=== PATIENT | male | born 1940 | race Caucasian/White ===

== ENCOUNTER 2018-02-18 10:30 | Day surgery (SDC) | payer MEDICARE, OTHER, SELFPAY ==
--- NOTE | 2018-02-18 | PATH_ITS ---
[facility] Accession Number: [id number] . 01 Material submitted: . PART A: CECAL POLYP X3 PART B: TRANSVERSE COLON POLYP PART C: COLON POLYP AT 80CM PART D: COLON POLYP AT 55CM X2 PART E: POLYP AT 25CM PART F: COLON POLYP AT 15CM X2 . 02 Diagnosis: A. Cecal Polyps: Fragments of tubular adenoma (three polyps removed). . B. Transverse Colon Polyp: Tubular adenoma. . C. Colon Polyp at 80 cm: Colonic mucosa with no diagnostic abnormality, consistent with polypoid redundancy. Negative for serrated lesion, dysplasia or malignancy. . D. Colon Polyps at 55 cm: Tubular adenoma x1. Colonic mucosa with no diagnostic abnormality, consistent with polypoid redundancy x1. . E. Colon Polyp at 25 cm: Tubular adenoma. . F. Colon Polyps x 15 cm: Traditional serrated adenoma x1. Hyperplastic polyp x1. [facility]/02/21/2018 . 02 Comment: F. A traditional serrated adenoma is considered an advanced adenoma. As such, assurance of complete polypectomy and a shortened surveillance interval are recommended. . 02 Electronically signed: . Simone Rose MD, PhD, Pathologist NPI- [id number] . 01 Gross description: . Received six formalin-filled containers, each labeled with the patient's name: . A. In a container labeled cecal polyps x3, the specimen consists of multiple 0.1-0.5 cm portions of tissue, entirely submitted in cassette A. B. In a container labeled transverse col polyp, the specimen consists of two 0.2-0.4 cm portions of tissue, entirely submitted in cassette B. C. In a container labeled colon polyp at 80 cm, the specimen consists of a 0.2 cm portion of tissue, entirely submitted in cassette C. D. In a container labeled colon polyp at 55 x2, the specimen consists of two extremely tiny less than 0.1 cm to 0.2 cm portions of tissue, entirely submitted in cassette D. E. In a container labeled polyp at 25 cm, the specimen consists of two 0.5-0.7 cm portions of tissue, entirely submitted in cassette E. F. In a container labeled colon polyp at 15 cm, the specimen consists of three fragments of tissue which range in size from 0.2 cm to 0.4 cm. The specimen is entirely submitted in cassette F. ([id number]) /FRR . 02 Pathologist provided ICD-10: D12.0, D12.3 . 02 CPT . 196453, 684962, 687117, 710213, [id number], [id number] Performed at: 01 [facility] [address] [id number] MD Alexander Nice MD Phone: [phone] Performed at: 02 [facility] [address] [place] [id number] MD Marta Harp MD Phone: [phone]
[2018-02-18 10:44] VITALS: BP 159/85; PULSE 64; RESP 17; TEMP 36.3; O2SAT 98; BMI 27.6
[2018-02-18] MEDS: SODIUM CHLORIDE 0.9% 1,000 ML 200 ML IV (11:03)
--- NOTE | 2018-02-18 11:46 | PM.HP.1 ---
History of Present Illness Date Patient Seen: 02/18/18 Time Patient Seen: 11:46 Chief complaint: colonoscopy [id number] Narrative: The patient is a gentleman here for a screening colonoscopy. He had numerous polyps removed his last exam and so it was recommended that he have it repeated in 3 rather than 5 years. Patient History Medical History Atrial fibrillation (Chronic) Chronic anticoagulation (Chronic) Surgical History H/O arthroscopy of knee (Resolved) Family & Social History Social History: household members spouse Meds Home Medications Medication Instructions Recorded Confirmed Type warfarin [Coumadin] 10 mg PO #0 05/16/12 History atenolol 50 mg PO DAILY 02/18/18 02/18/18 History atorvastatin 02/18/18 History Allergies Allergy/AdvReac Type Severity Reaction Status Date / Time No Known Drug Allergies Allergy Verified 02/18/18 11:38 Review of Systems Review of Systems All systems reviewed & are unremarkable except as noted in HPI and below Cardiovascular Comments: History of atrial fibrillation on warfarin Exam Vital Signs (past 8 hours): - 02/18/18 10:44 Temperature 97.3 F L Pulse Rate 64 Respiratory Rate 17 Blood Pressure 159/85 H Pulse Oximetry 98 Oxygen Delivery Method Room Air Narrative Exam Narrative: Co Operative no apparent distress. Lungs are clear to auscultation no rales or rhonchi. Heart irregular with a 3/6 systolic murmur heard best at the base. No bruit in the neck. Abdomen is mildly protuberant soft nontender without mass. Patient is alert and oriented but very hard of hearing. Assessment & Plan Plan: Assessment/Plan Narrative: Here for a colonoscopy. I have discussed the procedure and the rationale with the patient including risks of bleeding, perforation which would necessitate a major operation, failure to find remove all lesions and the potential to tattoo. They appeared to understand and wished to proceed.
--- NOTE | 2018-02-18 11:51 | PM.PREOP ---
Pre-operative Note Interval Note Pre-op Check: Yes History & Physical exam performed today by Physician Changes: No ASA Class (for procedural sedation): III
[2018-02-18] MEDS: MIDAZOLAM 5 MG/5 ML VIAL IV (12:21)
[2018-02-18] MEDS: fentaNYL 250 MCG/5 ML INJ IV (12:22)
--- NOTE | 2018-02-18 12:40 | PM.OP.ENDO ---
Operative Date/Time/Diagnoses Date of procedure: 02/18/18 Time of procedure: 12:40 Pre-op diagnosis: History of polyps. Last exam 3 years ago. Due to the frequency of his polyps a shorter time line unusual was recommended. Post-op diagnosis: same (Multiple polyps) Procedure & Clinicians Study performed: Colonoscopy with multiple cold biopsy and hot snare polypectomy x2 Same procedure as scheduled: Yes Indications: History of multiple polyps Surgeon: Kirk Bass Procedure Notes SCOAP/Timeout: Performed Procedure in detail: The patient was placed in the left lateral decubitus position and underwent IV sedation directed by the surgeon consisting of fentanyl and Versed. Digital exam was unremarkable. I really could not feel his prostate well.. The scope was inserted and advanced through the rectum into the sigmoid, descending, transverse, and ascending colon. I noted in the rectum of the patient had a larger flat polyp which I decided with snare on the way out. The cecum was reached identified by the ileocecal valve and the appendiceal opening. There was a small polyp near the appendix which I biopsied and removed. Two others were located in the ascending colon which were biopsied and removed. The scope was gradually brought out. Additional Polyps were found at the transverse colon, 80 cm from the anal verge, 2 at 55 cm from the anal verge. All of these were removed with cold biopsy forceps the 1 was partially cauterized. All of these were diminutive polyps. At 25 cm from the anal verge there was a larger polyp on a stalk which I snared and appeared to be completely removed. In the rectum at 15 cm there was 1 small polyp which I biopsied and removed and a 2nd flat lesion that I had seen on entering the rectum initially. This was snared and the surrounding cauterized. The scope ultimately was retroflexed in the rectum. The appearance was unremarkable. The scope was removed and the patient tolerated the procedure well. Of note: The patient had difficulty holding air and the design of the scope was such when an instrument is inserted: Does not stay inflated. Therefore it is certainly possible that I missed small polyps. For this reason and the numerous nature of his polyps he should have this exam repeated 1-3 years. Scope withdrawal time: 33 min Sedation minutes: 46 Findings: polyp (Ten removed.) Recommendations: Other recommendation (Repeat in 1-3 years) Follow up: as needed Disposition: same day surgery
[2018-02-18 12:45] VITALS: BP 130/81; PULSE 61; RESP 14; TEMP 36.8; O2SAT 98
[2018-02-18 13:19] VITALS: BP 153/84; PULSE 62; RESP 16; O2SAT 98
== END 2018-02-18 13:30 | disposition home or self-care (01) ==
PROVIDERS: Family Provider Family Medicine Geriatric Medicine; PCP Family Medicine Geriatric Medicine; Visit Provider Specialist
PROC: 0DJD8ZZ Inspection of Lower Intestinal Tract, Via Natural or Artificial Opening Endoscopic (ICD-10-PCS; CPT 45378; principal; 2018-02-18 11:45)
DX: Z86.010 Personal history of colon polyps (principal); I48.91 Unspecified atrial fibrillation; Z79.01 Long term (current) use of anticoagulants; D12.0 Benign neoplasm of cecum; D12.6 Benign neoplasm of colon, unspecified
CPT/HCPCS: 45385; 45380; 88305; 99152; 99153; J2250; J3010

== ENCOUNTER → 2018-05-19 10:09 | Outpatient (CLI) | payer MEDICARE, OTHER, SELFPAY ==
--- NOTE | 2018-05-19 | DI.RAD.S_ITS ---
PROCEDURE: XR HIP W PEL IF DONE LT MIN 4V INDICATIONS: LOW BACK PAIN RADIATING TO HIPS TECHNIQUE: AP pelvis with lateral view(s) of the left and right hip(s). COMPARISON: None. FINDINGS: Bones: No fractures or dislocations. Pelvic ring appears intact. No suspicious bony lesions. Lower lumbar spondylosis. Mild left hip degeneration. Moderate right hip degenerative joint disease. Soft tissues: The visualized bowel gas pattern is normal. No suspicious soft tissue calcifications. Numerous vascular calcifications. 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 Lower lumbar degenerative disc disease. Dictated by: Olman Carmichael M.D. on 05/19/2018 at 12:52 Approved by: Olman Carmichael M.D. on 05/19/2018 at 12:54
--- NOTE | 2018-05-19 | DI.MRI.S_ITS ---
PROCEDURE: MR LUMBAR SPINE WO CON INDICATIONS: LOW BACK PAIN RADIATING TO HIPS TECHNIQUE: Noncontrast sagittal T1 spin echo and T2 fast echo, sagittal STIR, axial T1 and T2 fast spin echo through the lumbar spine. In cases with scoliosis, additional coronal T2 fast spin echo may be performed. COMPARISON: [facility], MR, L-SPINE WITHOUT CONTRAST, 12/03/2016, 13:00. [facility], CR, L-SPINE 2-3 VIEWS, 11/24/2016, 12:41. FINDINGS: Image quality: Excellent. Alignment and Curvature: 5 lumbar type vertebral bodies are present by plain film. Bone Marrow: Marrow is of normal overall signal. No acute vertebral body compression fractures. There is moderate chronic wedging of L3. There is increased, moderate reactive signal within the superior L3 endplate, as well as within the endplates adjacent to the L4-L5 intervertebral discs. Mild reactive signal within the endplates adjacent to the T12-L1 and L1-L2 intervertebral discs. Spinal Cord: Conus medullaris terminates at the mid L1 level. Visualized cord demonstrates normal signal and size. Paraspinous Soft Tissues: No paravertebral masses. L1-L2: Moderate disc desiccation. Mild diffuse disc bulge. Mild facet and ligamentum flavum hypertrophy. Mild epidural lipomatosis. Mild canal stenosis. Mild bilateral foraminal stenosis. L2-L3: Moderate disc desiccation. Mild diffuse disc bulge with superimposed left far lateral broad-based protrusion. Mild facet and ligamentum flavum hypertrophy. Mild epidural lipomatosis. Increased, severe canal stenosis. No change in mild foraminal stenosis bilaterally. L3-L4: Moderate disc height loss and desiccation. Mild diffuse disc bulge/osteophyte. Moderate facet and ligamentum flavum hypertrophy bilaterally. Mild epidural lipomatosis. Increased, moderate to severe canal stenosis. No change in moderate subarticular bilateral foraminal stenosis. L4-L5: Moderate disc height loss and desiccation. Mild diffuse disc bulge with superimposed broad-based right far lateral protrusion/osteophyte. Mild facet and ligament flavum hypertrophy bilaterally. Mild epidural lipomatosis. Mild canal stenosis. Mild subarticular foraminal stenosis bilaterally. No change. L5-S1: Moderate disc height loss and desiccation. Mild diffuse disc bulge/osteophyte with superimposed small central protrusion. Mild bilateral facet hypertrophy. No significant canal stenosis. Moderate subarticular foraminal stenosis bilaterally. No change. IMPRESSION: 1. Multilevel degenerative disc and facet disease, as well as ligamentum flavum hypertrophy and epidural lipomatosis. 2. Multilevel canal stenoses, worst at L2-L3, where there is severe canal stenosis, which is increased. 3. No change in multilevel foraminal stenoses, worst at L3-L4 and L4-L5 bilaterally where there are moderate foraminal stenoses present. 4. Moderate chronic L3 compression fracture. Dictated by: Luis Aceves M.D. on 05/19/2018 at 10:08 Approved by: Luis Aceves M.D. on 05/19/2018 at 10:23
== END ==
PROVIDERS: Family Provider Family Medicine Geriatric Medicine; PCP Family Medicine Geriatric Medicine; Visit Provider Family Medicine Geriatric Medicine
DX: M54.5 Low back pain (principal); M51.16 Intervertebral disc disorders with radiculopathy, lumbar region; M51.17 Intervertebral disc disorders with radiculopathy, lumbosacral region; M48.061 Spinal stenosis, lumbar region without neurogenic claudication; M48.07 Spinal stenosis, lumbosacral region; M16.0 Bilateral primary osteoarthritis of hip; M48.56XA Collapsed vertebra, not elsewhere classified, lumbar region, initial encounter for fracture; M25.559 Pain in unspecified hip; E88.2 Lipomatosis, not elsewhere classified
CPT/HCPCS: 72148; 73522

== ENCOUNTER → 2018-07-22 08:40 | Outpatient (CLI) | payer MEDICARE, OTHER, SELFPAY ==
[2018-07-22 09:27] LABS: Prothrombin Time 11.7 SECONDS (10.1-12.7)
== END ==
PROVIDERS: Family Provider Family Medicine Geriatric Medicine; PCP Family Medicine Geriatric Medicine; Visit Provider Anesthesiology Pain Medicine
DX: D72.820 Lymphocytosis (symptomatic) (principal); M47.814 Spondylosis without myelopathy or radiculopathy, thoracic region; I48.91 Unspecified atrial fibrillation
CPT/HCPCS: 36415; 85610

== ENCOUNTER 2021-02-03 14:15 | Emergency (ER) | payer MEDICARE, OTHER, SELFPAY ==
[2021-02-03] VITALS (7 sets, daily range): BP systolic 130–160; BP diastolic 73–86; PULSE 67–75; RESP 20; TEMP 37.1; O2SAT 92–97
[2021-02-03 14:44] LABS: Hemoglobin 15.4 g/dL (13.5-17.5); Mean Corpuscular HGB Conc 33.1 % (30-36); Platelet Count 204 X10^3/uL (150-400)
[2021-02-03 14:47] LABS: Hematocrit 46.4 % (41-53); Mean Corpuscular Hemoglobin 31.7 PG (26-34); Mean Corpuscular Volume 95.6 fL (80-100); Red Blood Cell Count 4.85 X10^6/uL (4.5-5.9); Red Cell Distribution Width 14.4 % (11.6-14.8)
[2021-02-03 14:49] LABS: Add Manual Diff / Slide Review YES
[2021-02-03 14:54] LABS: Alanine Aminotransferase 22 IU/L (<50); Albumin 4.7 g/dL (3.5-5.0); Albumin Globulin Ratio 1.6 (1.0-2.8); Alkaline Phosphatase 67 U/L (38-126); Aspartate Aminotransferase 40 IU/L (17-59); BUN Creatinine Ratio 16.7 (6-22); Blood Urea Nitrogen 22 mg/dL (9-20); Calcium 9.6 mg/dL (8.4-10.2); Carbon Dioxide 28 mmol/L (22-32); Chloride 102 mmol/L (98-107); Estimated Glomerular Filt Rate 52.1 mL/min (>60); Globulin 2.9 g/dL (1.7-4.1); Glucose 110 mg/dL (80-110); HEMOLYSIS < 15 (0-50); Lipase 59 U/L (23-300); Sodium 140 mmol/L (137-145); Total Protein 7.6 g/dL (6.3-8.2)
--- NOTE | 2021-02-03 14:59 | DI.CT.S_ITS ---
PROCEDURE: CT ABDOMEN PELVIS W CON INDICATIONS: kidney stones TECHNIQUE: After the administration of intravenous contrast, axial sections acquired from the lung bases to the pubic symphysis. Coronal and sagittal reformats were performed. For radiation dose reduction, the following was used: automated exposure control, adjustment of mA and/or kV according to patient size. COMPARISON: None. FINDINGS: Image quality: Excellent. Lung bases: Unremarkable. Heart: Heart is enlarged. Atherosclerotic calcifications noted in the visualized coronary vasculature. Aortic valvular calcifications noted. Mitral annulus calcifications noted. ABDOMEN: Liver: Multiple up attic cysts. Gallbladder: Unremarkable. Biliary ducts: Unremarkable. Pancreas: Unremarkable. Spleen: Unremarkable. Adrenal Glands: Unremarkable. Kidneys and Ureters: 3-4 millimeter stone noted in the left UVJ causing mild left-sided hydroureteronephrosis. No right-sided renal stones or hydronephrosis. Bilateral renal cysts. Stomach and Bowel: Stomach, small bowel loops, and colon are unremarkable. Index is normal. Peritoneum: No abnormal intraperitoneal fluid. No free air. Ventral Wall: Small fat containing umbilical hernia. Abdominal Nodes: No retroperitoneal or mesenteric adenopathy by size criteria. Vessels: Aorta and inferior vena cava are normal in size. Scattered atherosclerotic calcifications involving the abdominal and pelvic vasculature. PELVIS: Pelvic Organs: Unremarkable. Bladder: Unremarkable. Pelvic Nodes: No enlarged lymph nodes. Miscellaneous: Small fat containing bilateral inguinal hernias. Bones: Spine degenerative disc disease and facet arthropathy. Chronic appearing T12 and L3 compression deformities. IMPRESSION: 3-4 millimeter left UVJ stone causing mild left-sided hydroureteronephrosis. Dictated by: Nevin Rodgers MD, PhD on 02/03/2021 at 14:26 Approved by: Nevin Rodgers MD, PhD on 02/03/2021 at 14:31
[2021-02-03 15:05] LABS: White Blood Cell Count 54.2 X10^3/uL (4.5-11.0)
[2021-02-03 15:09] LABS: Neutrophils Absolute Manual 10840 /uL (3000-5900); Total Cells Counted 100
[2021-02-03 15:11] LABS: RBC Morphology Normal Morphology; Smudge Cells 2+
[2021-02-03] MEDS: KETOROLAC 30 MG/ML VIAL 15 MG IV (15:20)
[2021-02-03] MEDS: SODIUM CHLORIDE 0.9% 1,000 ML 1000 ML IV ×2 (15:20→16:24)
[2021-02-03] MEDS: ONDANSETRON 4 MG/2 ML INJ IV (15:21)
[2021-02-03 15:44] LABS: Lactate (Lactic Acid) 1.3 mmol/L (0.7-2.1)
[2021-02-03 16:01] LABS: Procalcitonin 0.07 ng/mL (<0.5)
--- NOTE | 2021-02-03 16:24 | PC.NURSE ---
Magalis is still unable to urinate after 1st liter of fluids. 2nd of fluids started per verbal order from Chalo.
[2021-02-03 18:36] LABS: Appearance Urine UA CLEAR; Bilirubin Urine UA NEGATIVE (NEGATIVE); Color Urine UA YELLOW; Glucose Urine UA NEGATIVE (Negative); Ketones Urine UA TRACE (NEGATIVE); Leukocyte Esterase Urine UA NEGATIVE (NEGATIVE); Nitrite Urine UA NEGATIVE (Negative); Occult Blood Urine UA 3+ (Negative); Protein Urine UA TRACE (Negative); Urobilinogen Urine UA 0.2 E.U./dL (0.2)
[2021-02-03 18:37] LABS: Bacteria Urine None Seen; Culture Indicated Urine Cult Not Indicated; RBC Urine 10-30/HPF (0-5/HPF); WBC Urine None Seen (0-5/HPF)
--- NOTE | 2021-02-03 20:05 | PC.NURSE ---
Leg bag and padilla care teaching given by Natalio SAM to patient and family member at bedside.
--- NOTE | 2021-02-03 20:10 | ED_ITS ---
HPI - Abdominal Pain <Alcides Isabel PA-C - Last Filed: 02/03/21 20:22> General Chief Complaint: Abdominal Pain Stated Complaint: Poss Kidney Stones/Torso Pain Time Seen by Provider: 02/03/21 14:30 Source: patient Mode of arrival: Ambulatory History of Present Illness HPI narrative: 80-year-old male with past medical history leukemia presents to the ED with 2 days of left-sided flank and abdominal pain. Patient also endorses some nausea. Patient denies fever, chills, chest pain, shortness of breath, cough, vomiting, dysuria, lightheadedness, dizziness, syncope. Patient denies prior history of kidney stones, but has family history of kidney stones. Related Data Home Medications Medication Instructions Recorded Confirmed warfarin 10 mg tablet (Coumadin) 10 mg PO #0 05/16/12 atenolol 50 mg tablet 50 mg PO DAILY 02/18/18 02/18/18 atorvastatin 40 mg tablet 02/18/18 Previous Rx's Medication Instructions Recorded ondansetron HCl 4 mg tablet 4 mg PO Q8H #10 tab 02/03/21 (Zofran) oxycodone-acetaminophen 5 mg-325 1 tab PO Q8H PRN #10 tab 02/03/21 mg tablet (Percocet) Allergies Allergy/AdvReac Type Severity Reaction Status Date / Time No Known Drug Allergies Allergy Verified 02/18/18 11:38 Review of Systems <Alcides Isabel PA-C - Last Filed: 02/03/21 20:22> Constitutional Constitutional: Denies chills, Denies fatigue, Denies fever(s), Denies frequent falls, Denies lethargy and Denies weakness Eyes Eyes: Denies change in vision, Denies eye discharge, Denies irritation and Denies loss of vision ENT Ears, Nose, Mouth, and Throat: Denies change in voice, Denies dizziness, Denies neck pain, Denies sore throat and Denies throat swelling Cardiovascular Cardiovascular: Denies chest pain, Denies irregular heart rhythm, Denies lightheadedness, Denies palpitations, Denies dyspnea, Denies dyspnea on exertion and Denies orthopnea Respiratory Respiratory: Denies cough, Denies dyspnea, Denies dyspnea on exertion and Denies wheezing Gastrointestinal Gastrointestinal: Reports abdominal pain, Denies change in bowel habits, Denies diarrhea, Reports nausea and Denies vomiting Comments: Left-sided abdominal and flank pain Genitourinary Genitourinary: Reports oliguria, Reports difficulty urinating and Denies dysuria Musculoskeletal Musculoskeletal: Denies neck pain and Denies numbness Integumentary/Breasts Skin/Breast: Denies pruritus, Denies erythema, Denies rash and Denies wounds Neurologic Neurologic: Denies behavioral changes, Denies confusion, Denies dizziness, Denies frequent falls, Denies loss of vision, Denies numbness and Denies weakness Psychiatric Psychiatric: Denies anxiety, Denies behavioral changes, Denies confusion, Denies depression, Denies homicidal ideation and Denies suicidal ideation Endocrine Endocrine: Denies fatigue, Denies flushing and Denies palpitations Hematologic/Lymphatic Hematologic/Lymphatic: Denies easy bruising Allergic/Immunologic Allergic/Immunologic: Denies urticaria, Denies throat swelling and Denies wheezing Patient History <Alcides Isabel PA-C - Last Filed: 02/03/21 20:22> Medical History Atrial fibrillation Chronic anticoagulation Surgical History H/O arthroscopy of knee Social History household members: spouse Exam <Alcides Isabel PA-C - Last Filed: 02/03/21 20:22> Initial Vital Signs Initial Vital Signs: Vital Signs Temperature 98.8 F 02/03/21 14:30 Pulse Rate 67 02/03/21 14:30 Respiratory Rate 20 02/03/21 14:30 Blood Pressure 148/81 H 02/03/21 14:30 Pulse Oximetry 96 02/03/21 14:30 Const General: cooperative [facility] Head: normocephalic and atraumatic Ears: external ears normal and TM's normal bilaterally Nose: external nose normal and No nasal discharge Face and sinus: sinuses nontender, face symmetric, no sinus tenderness and No dry mucous membranes Mouth: oral mucosae normal and moist mucous membranes Teeth and gingiva: dentition normal Throat: tonsils normal and uvula midline Eyes General: appearance normal, both eyes and all related structures Eyelids: eyelids normal Conjunctivae: conjunctivae normal Sclera: sclerae normal Pupils: PERRL EOM: EOM intact bilaterally Neck Neck: normal visual inspection, trachea midline, No lymphadenopathy, No midline deformity and No JVD Lymphatic: No lymphedema Chest Chest: normal inspection of the chest Resp Effort & Inspection: normal respiratory effort, able to speak in complete sentences, no respiratory distress and no use of accessory muscles Auscultation: clear to auscultation bilaterally, no rales, no rhonchi and no wheezes Cardio Rate: regular rate Rhythm: regular rhythm Heart Sounds: no click, no gallops, no murmurs and no rubs Pulses: normal peripheral pulses GI Inspection: non-distended Palpation: soft, no hepatosplenomegaly, No guarding, No pulsatile mass and No tender Auscultation: normal bowel sounds Other: Abdomen is soft, nondistended, non tender to palpation. No CVA tenderness. Back/Spine/Pelvis Back: No CVA tenderness Cervical Spine: cervical ROM normal and No pain with cervical ROM Thoracic/Lumbar Spine: thoracic and lumbar spine normal to inspection Skin General: no rashes or lesions noted, No jaundice and No petechiae Neuro General: patient alert, patient oriented x3, gait normal and no focal motor deficits Speech: speech normal Extrem General: full ROM, no clubbing, cyanosis or edema, no pedal edema and no calf tenderness Psych Appearance: well kempt Mental Status: mental status grossly normal Attitude: cooperative Thought Content: normal and suicidality Judgment: judgment good <Noe Barth DO - Last Filed: 02/04/21 07:05> Initial Vital Signs Initial Vital Signs: Vital Signs Temperature 98.8 F 02/03/21 14:30 Pulse Rate 67 02/03/21 14:30 Respiratory Rate 20 02/03/21 14:30 Blood Pressure 148/81 H 02/03/21 14:30 Pulse Oximetry 96 02/03/21 14:30 Course <Alcides Isabel PA-C - Last Filed: 02/03/21 20:22> Course Course Narrative: WBC elevated to 54, likely due to leukemia. Patient endorses prior elevated wbc's due to leukemia. UA negative for UTI. CT abdomen pelvis shows a 3-4 mm stone in the left UVJ, with mild hydronephrosis. Patient's pain and nausea well controlled with ketorolac and Zofran. Patient was unable to urinate despite 2 L of IV fluid, patient was catheterized. Will discharge home with catheter, follow-up with urology, prescription for Zofran and Percocet. ED return precautions discussed. Patient and patient's verbalized understanding. Orders Ordered: Discontinued Medications Sodium Chloride (Normal Saline 0.9%) 1,000 mls @ 1,000 mls/hr IV BOLUS ONE Stop: 02/03/21 15:58 Last Infusion: 02/03/21 16:22 Dose: 0 mls/hr Documented by: Admin: 02/03/21 15:20 Dose: 1,000 mls/hr Documented by: STEFFEN Sodium Chloride (Normal Saline 0.9%) 1,000 mls @ 1,000 mls/hr IV BOLUS ONE Stop: 02/03/21 17:22 Last Infusion: 02/03/21 17:54 Dose: 0 mls/hr Documented by: Admin: 02/03/21 16:24 Dose: 1,000 mls/hr Documented by: STEFFEN Ketorolac Tromethamine (Ketorolac 30 Mg/Ml Vial) 15 mg IV NOW ONE Stop: 02/03/21 15:00 Last Admin: 02/03/21 15:20 Dose: 15 mg Documented by: STEFFEN Ondansetron HCl (Ondansetron 4 Mg/2 Ml Inj) 4 mg IV NOW ONE Stop: 02/03/21 15:00 Last Admin: 02/03/21 15:21 Dose: 4 mg Documented by: STEFFEN Vital Signs Vital signs: Vital Signs - 8 hr 02/03/21 14:30 02/03/21 16:09 02/03/21 18:13 Temperature 98.8 F Pulse Rate 67 75 67 Respiratory Rate 20 Blood Pressure 148/81 H 149/78 H Pulse Oximetry 96 94 92 02/03/21 18:14 02/03/21 18:30 02/03/21 19:00 Temperature Pulse Rate 71 73 72 Respiratory Rate Blood Pressure 160/77 H 158/83 H 148/73 H Pulse Oximetry 96 96 97 02/03/21 19:30 Temperature Pulse Rate 70 Respiratory Rate Blood Pressure 130/86 Pulse Oximetry 95 <Noe Barth DO - Last Filed: 02/04/21 07:05> Orders Ordered: Discontinued Medications Sodium Chloride (Normal Saline 0.9%) 1,000 mls @ 1,000 mls/hr IV BOLUS ONE Stop: 02/03/21 15:58 Last Infusion: 02/03/21 16:22 Dose: 0 mls/hr Documented by: Admin: 02/03/21 15:20 Dose: 1,000 mls/hr Documented by: STEFFEN Sodium Chloride (Normal Saline 0.9%) 1,000 mls @ 1,000 mls/hr IV BOLUS ONE Stop: 02/03/21 17:22 Last Infusion: 02/03/21 17:54 Dose: 0 mls/hr Documented by: Admin: 02/03/21 16:24 Dose: 1,000 mls/hr Documented by: STEFFEN Ketorolac Tromethamine (Ketorolac 30 Mg/Ml Vial) 15 mg IV NOW ONE Stop: 02/03/21 15:00 Last Admin: 02/03/21 15:20 Dose: 15 mg Documented by: STEFFEN Ondansetron HCl (Ondansetron 4 Mg/2 Ml Inj) 4 mg IV NOW ONE Stop: 02/03/21 15:00 Last Admin: 02/03/21 15:21 Dose: 4 mg Documented by: STEFFEN Vital Signs Vital signs: Vital Signs - 8 hr 02/03/21 14:30 02/03/21 16:09 02/03/21 18:13 Temperature 98.8 F Pulse Rate 67 75 67 Respiratory Rate 20 Blood Pressure 148/81 H 149/78 H Pulse Oximetry 96 94 92 02/03/21 18:14 02/03/21 18:30 02/03/21 19:00 Temperature Pulse Rate 71 73 72 Respiratory Rate Blood Pressure 160/77 H 158/83 H 148/73 H Pulse Oximetry 96 96 97 02/03/21 19:30 Temperature Pulse Rate 70 Respiratory Rate Blood Pressure 130/86 Pulse Oximetry 95 MDM - Abdominal Pain <Alcides Isabel PA-C - Last Filed: 02/03/21 20:22> Lab Data Lab results narrative: WBC elevated to 54, likely due to leukemia. UA negative for UTI. Result diagrams: 02/03/21 14:35 02/03/21 14:35 Labs: Lab Results 02/03/21 02/03/21 02/03/21 Range/Units 14:33 14:33 14:35 WBC 54.2 H* (4.5-11.0) X10^3/uL RBC 4.85 (4.5-5.9) X10^6/uL Hgb 15.4 (13.5-17.5) g/dL Hct 46.4 (41-53) % MCV 95.6 (80-100) fL MCH 31.7 (26-34) PG MCHC 33.1 (30-36) % RDW 14.4 (11.6-14.8) % Plt Count 204 (150-400) X10^3/uL Neut % (Auto) Not Reportable Lymph % (Auto) Not Reportable [place] % (Auto) Not Reportable Eos % (Auto) Not Reportable Baso % (Auto) Not Reportable Lymph # (Auto) Not Reportable [place] # (Auto) Not Reportable Baso # (Auto) Not Reportable Total Counted 100 Seg Neutrophils % 20.0 L (38-70) % Lymphocytes % (Manual) 70.0 H (25-45) % Atypical Lymphs % 6.0 H ( - 0) % Monocytes % (Manual) 4.0 (2-11) % Neutrophils # (Manual) 08472 H (2959-3596) /uL Smudge Cells 2+ H RBC Morphology Normal morphology Sodium (137-145) mmol/L Potassium (3.4-5.1) mmol/L Chloride (98-107) mmol/L Carbon Dioxide (22-32) mmol/L BUN (9-20) mg/dL Creatinine (0.66-1.25) mg/dL Estimated GFR (>60) mL/min BUN/Creatinine Ratio (6-22) Glucose (80-110) mg/dL Lactate 1.3 (0.7-2.1) mmol/L Calcium (8.4-10.2) mg/dL Total Bilirubin (0.2-1.3) mg/dL AST (17-59) IU/L ALT (<50) IU/L Alkaline Phosphatase (38-126) U/L Total Protein (6.3-8.2) g/dL Albumin (3.5-5.0) g/dL Globulin (1.7-4.1) g/dL Albumin/Globulin Ratio (1.0-2.8) Lipase (23-300) U/L Procalcitonin 0.07 (<0.5) ng/mL Urine Color Urine Appearance Urine pH (4.5-8.0) Ur Specific [place] (1.000-1.035) Urine Protein (Negative) Urine Glucose (UA) (Negative) g/dL Urine Ketones (NEGATIVE) Urine Occult Blood (Negative) Urine Nitrate (Negative) Urine Bilirubin (NEGATIVE) Urine Urobilinogen (0.2) E.U./dL Ur Leukocyte Esterase (NEGATIVE) Urine RBC (0-5/HPF) Urine WBC (0-5/HPF) Urine Bacteria (None) Ur Culture Indicated? 02/03/21 02/03/21 Range/Units 14:35 18:10 WBC (4.5-11.0) X10^3/uL RBC (4.5-5.9) X10^6/uL Hgb (13.5-17.5) g/dL Hct (41-53) % MCV (80-100) fL MCH (26-34) PG MCHC (30-36) % RDW (11.6-14.8) % Plt Count (150-400) X10^3/uL Neut % (Auto) Lymph % (Auto) [place] % (Auto) Eos % (Auto) Baso % (Auto) Lymph # (Auto) [place] # (Auto) Baso # (Auto) Total Counted Seg Neutrophils % (38-70) % Lymphocytes % (Manual) (25-45) % Atypical Lymphs % ( - 0) % Monocytes % (Manual) (2-11) % Neutrophils # (Manual) (2745-7643) /uL Smudge Cells RBC Morphology Sodium 140 (137-145) mmol/L Potassium 5.0 (3.4-5.1) mmol/L Chloride 102 (98-107) mmol/L Carbon Dioxide 28 (22-32) mmol/L BUN 22 H (9-20) mg/dL Creatinine 1.32 H (0.66-1.25) mg/dL Estimated GFR 52.1 L (>60) mL/min BUN/Creatinine Ratio 16.7 (6-22) Glucose 110 (80-110) mg/dL Lactate (0.7-2.1) mmol/L Calcium 9.6 (8.4-10.2) mg/dL Total Bilirubin 1.0 (0.2-1.3) mg/dL AST 40 (17-59) IU/L ALT 22 (<50) IU/L Alkaline Phosphatase 67 (38-126) U/L Total Protein 7.6 (6.3-8.2) g/dL Albumin 4.7 (3.5-5.0) g/dL Globulin 2.9 (1.7-4.1) g/dL Albumin/Globulin Ratio 1.6 (1.0-2.8) Lipase 59 (23-300) U/L Procalcitonin (<0.5) ng/mL Urine Color Yellow Urine Appearance Clear Urine pH 5.0 (4.5-8.0) Ur Specific [place] 1.010 (1.000-1.035) Urine Protein Trace H (Negative) Urine Glucose (UA) Negative (Negative) g/dL Urine Ketones Trace H (NEGATIVE) Urine Occult Blood 3+ H (Negative) Urine Nitrate Negative (Negative) Urine Bilirubin Negative (NEGATIVE) Urine Urobilinogen 0.2 (0.2) E.U./dL Ur Leukocyte Esterase Negative (NEGATIVE) Urine RBC 10-30/hpf H (0-5/HPF) Urine WBC None seen (0-5/HPF) Urine Bacteria None seen (None) Ur Culture Indicated? Cult not indicated Imaging Data CT scan - abdomen/pelvis: Radiologist's Impression: PROCEDURE:? CT ABDOMEN PELVIS W CON ? INDICATIONS:? kidney stones ? TECHNIQUE:? After the administration of intravenous contrast, axial sections acquired from the lung bases to the pubic symphysis.? Coronal and sagittal reformats were performed.? For radiation dose reduction, the following was used:? automated exposure control, adjustment of mA and/or kV according to patient size.? ? COMPARISON:? None. ? FINDINGS:? Image quality:? Excellent.? ? Lung bases:? Unremarkable. Heart:? Heart is enlarged.? Atherosclerotic calcifications noted in the visualized coronary vasculature.? Aortic valvular calcifications noted.? Mitral annulus calcifications noted. ? ABDOMEN: Liver:? Multiple up attic cysts. Gallbladder:? Unremarkable.? ? Biliary ducts:? Unremarkable.? ? Pancreas:? Unremarkable.? ? Spleen:? Unremarkable.? ? Adrenal Glands:? Unremarkable.? ? Kidneys and Ureters:? 3-4 millimeter stone noted in the left UVJ causing mild left-sided hydroureteronephrosis.? No right-sided renal stones or hydronephrosis.? Bilateral renal cysts. ? Stomach and Bowel:? Stomach, small bowel loops, and colon are unremarkable.? Index is normal. Peritoneum:? No abnormal intraperitoneal fluid.? No free air.? ? Ventral Wall: ? Small fat containing umbilical hernia. Abdominal Nodes:? No retroperitoneal or mesenteric adenopathy by size criteria.? Vessels:? Aorta and inferior vena cava are normal in size. Scattered atherosclerotic calcifications involving the abdominal and pelvic vasculature.? ? PELVIS: Pelvic Organs:? Unremarkable.? ? Bladder:? Unremarkable.? ? Pelvic Nodes: No enlarged lymph nodes.? Miscellaneous:? Small fat containing bilateral inguinal hernias. ? Bones:? Spine degenerative disc disease and facet arthropathy.? Chronic appearing T12 and L3 compression deformities. ? ? IMPRESSION:? 3-4 millimeter left UVJ stone causing mild left-sided hydroureteronephrosis. ? ? Dictated by: Nevin Rodgers MD, PhD on 02/03/2021 at 14:26 ? ? Approved by: Nevin Rodgers MD, PhD on 02/03/2021 at 14:31 ? MDM Narrative Medical decision making narrative: 80-year-old male with past medical history leukemia presents to the ED with 2 days of left-sided flank and abdominal pain. Concern for kidney stones versus diverticulitis versus musculoskeletal pain. Will order labs, lactate, CT abdomen pelvis, UA. Will give ketorolac and Zofran for symptoms. Will reassess. <Noe Barth, DO - Last Filed: 02/04/21 07:05> Lab Data Labs: Lab Results 02/03/21 02/03/21 02/03/21 Range/Units 14:33 14:33 14:35 WBC 54.2 H* (4.5-11.0) X10^3/uL RBC 4.85 (4.5-5.9) X10^6/uL Hgb 15.4 (13.5-17.5) g/dL Hct 46.4 (41-53) % MCV 95.6 (80-100) fL MCH 31.7 (26-34) PG MCHC 33.1 (30-36) % RDW 14.4 (11.6-14.8) % Plt Count 204 (150-400) X10^3/uL Neut % (Auto) Not Reportable Lymph % (Auto) Not Reportable [place] % (Auto) Not Reportable Eos % (Auto) Not Reportable Baso % (Auto) Not Reportable Lymph # (Auto) Not Reportable [place] # (Auto) Not Reportable Baso # (Auto) Not Reportable Total Counted 100 Seg Neutrophils % 20.0 L (38-70) % Lymphocytes % (Manual) 70.0 H (25-45) % Atypical Lymphs % 6.0 H ( - 0) % Monocytes % (Manual) 4.0 (2-11) % Neutrophils # (Manual) 69126 H (5000-5800) /uL Smudge Cells 2+ H RBC Morphology Normal morphology Sodium (137-145) mmol/L Potassium (3.4-5.1) mmol/L Chloride (98-107) mmol/L Carbon Dioxide (22-32) mmol/L BUN (9-20) mg/dL Creatinine (0.66-1.25) mg/dL Estimated GFR (>60) mL/min BUN/Creatinine Ratio (6-22) Glucose (80-110) mg/dL Lactate 1.3 (0.7-2.1) mmol/L Calcium (8.4-10.2) mg/dL Total Bilirubin (0.2-1.3) mg/dL AST (17-59) IU/L ALT (<50) IU/L Alkaline Phosphatase (38-126) U/L Total Protein (6.3-8.2) g/dL Albumin (3.5-5.0) g/dL Globulin (1.7-4.1) g/dL Albumin/Globulin Ratio (1.0-2.8) Lipase (23-300) U/L Procalcitonin 0.07 (<0.5) ng/mL Urine Color Urine Appearance Urine pH (4.5-8.0) Ur Specific [place] (1.000-1.035) Urine Protein (Negative) Urine Glucose (UA) (Negative) g/dL Urine Ketones (NEGATIVE) Urine Occult Blood (Negative) Urine Nitrate (Negative) Urine Bilirubin (NEGATIVE) Urine Urobilinogen (0.2) E.U./dL Ur Leukocyte Esterase (NEGATIVE) Urine RBC (0-5/HPF) Urine WBC (0-5/HPF) Urine Bacteria (None) Ur Culture Indicated? 02/03/21 02/03/21 Range/Units 14:35 18:10 WBC (4.5-11.0) X10^3/uL RBC (4.5-5.9) X10^6/uL Hgb (13.5-17.5) g/dL Hct (41-53) % MCV (80-100) fL MCH (26-34) PG MCHC (30-36) % RDW (11.6-14.8) % Plt Count (150-400) X10^3/uL Neut % (Auto) Lymph % (Auto) [place] % (Auto) Eos % (Auto) Baso % (Auto) Lymph # (Auto) [place] # (Auto) Baso # (Auto) Total Counted Seg Neutrophils % (38-70) % Lymphocytes % (Manual) (25-45) % Atypical Lymphs % ( - 0) % Monocytes % (Manual) (2-11) % Neutrophils # (Manual) (3673-7378) /uL Smudge Cells RBC Morphology Sodium 140 (137-145) mmol/L Potassium 5.0 (3.4-5.1) mmol/L Chloride 102 (98-107) mmol/L Carbon Dioxide 28 (22-32) mmol/L BUN 22 H (9-20) mg/dL Creatinine 1.32 H (0.66-1.25) mg/dL Estimated GFR 52.1 L (>60) mL/min BUN/Creatinine Ratio 16.7 (6-22) Glucose 110 (80-110) mg/dL Lactate (0.7-2.1) mmol/L Calcium 9.6 (8.4-10.2) mg/dL Total Bilirubin 1.0 (0.2-1.3) mg/dL AST 40 (17-59) IU/L ALT 22 (<50) IU/L Alkaline Phosphatase 67 (38-126) U/L Total Protein 7.6 (6.3-8.2) g/dL Albumin 4.7 (3.5-5.0) g/dL Globulin 2.9 (1.7-4.1) g/dL Albumin/Globulin Ratio 1.6 (1.0-2.8) Lipase 59 (23-300) U/L Procalcitonin (<0.5) ng/mL Urine Color Yellow Urine Appearance Clear Urine pH 5.0 (4.5-8.0) Ur Specific [place] 1.010 (1.000-1.035) Urine Protein Trace H (Negative) Urine Glucose (UA) Negative (Negative) g/dL Urine Ketones Trace H (NEGATIVE) Urine Occult Blood 3+ H (Negative) Urine Nitrate Negative (Negative) Urine Bilirubin Negative (NEGATIVE) Urine Urobilinogen 0.2 (0.2) E.U./dL Ur Leukocyte Esterase Negative (NEGATIVE) Urine RBC 10-30/hpf H (0-5/HPF) Urine WBC None seen (0-5/HPF) Urine Bacteria None seen (None) Ur Culture Indicated? Cult not indicated Discharge Plan Departure Patient Disposition: Home Clinical Impression: Calculus of kidney Instructions: DI for Kidney Stones Activity Restrictions/Additional Instructions: You were evaluated in the ED today for abdominal pain. Your CT showed a nonobs tructing 3-4 mm kidney stone on the left side. A stone of that size has a very good chance of passing spontaneously. You may take Percocet for pain and Zofran for nausea. The Percocet will make you sleepy, so please use all the right precautions to avoid falls. We put in a urinary catheter today since you were unable to urinate. Please follow-up with a urologist to evaluate the urinary problem. You will keep in the leg bag until you see the urologist. Please return to the ED if you are experiencing pain despite the pain medication, have nausea or vomiting that are not controlled by the medicine, you experience fever, chills. Prescriptions: New ondansetron HCl [Zofran] 4 mg tablet 4 mg PO Q8H Qty: 10 RF: 0 oxycodone-acetaminophen [Percocet] 5-325 mg tablet 1 tab PO Q8H PRN (Reason: pain) Qty: 10 RF: 0 No Action warfarin [Coumadin] 10 MG tablet 10 mg PO Qty: 0 RF: 0 atorvastatin 40 mg Tablet RF: 0 atenolol 50 mg Tablet 50 mg PO DAILY RF: 0 Referrals: David Berry MD [Primary Care Provider] - <Noe Barth DO - Last Filed: 02/04/21 07:05> [facility] ED Attending Avelino Attestation: I was immediately available in the department for consultation. This documentation has been reviewed and I agree with assessment and plan. Supervised by Noe Barth, DO
== END 2021-02-03 20:06 | disposition home or self-care (01) ==
PROVIDERS: Emergency Provider Student in an Organized Health Care Education/Training Program; PCP Family Medicine
DX: N20.0 Calculus of kidney (principal); R11.0 Nausea; Z85.6 Personal history of leukemia
CPT/HCPCS: 36415; 51798; 74177; 80053; 81001; 83605; 83690; 84145; 85007; 85025; 87040; 96361; 96374; 96375; 99284; J1885; J2405

== ENCOUNTER → 2021-02-12 09:40 | Outpatient (CLI) | payer MEDICARE, OTHER, SELFPAY ==
--- NOTE | 2021-02-12 09:44 | DI.RAD.S_ITS ---
PROCEDURE: XR KUB INDICATIONS: Kidney stone TECHNIQUE: One view of the abdomen acquired. COMPARISON: [facility], CT, CT ABDOMEN PELVIS W CON, 02/03/2021, 15:10. FINDINGS: Surgical changes and devices: None. Bowel: Bowel gas pattern is nonobstructive. Soft tissues: No suspicious abdominal calcifications. Visualized solid organ contours appear normal in size. Previously described 3-4 mm left ureterovesicular junction stone is not visualized radiographically and presumably has passed. Extensive vascular calcifications are noted in the pelvis. Bones: No suspicious bony lesions. Moderate multilevel lumbar spondylosis. Degenerative changes of the bilateral hips and bilateral sacroiliac joints. IMPRESSION: 1. No radiographic evidence for previously described 3-4 mm left ureterovesicular junction stone. This has presumably passed. 2. Multilevel lumbar spondylosis. 3. Degenerative changes of the bilateral sacroiliac joints and bilateral hips. 4. Atherosclerotic vascular disease. Dictated by: Rivera Shabazz M.D. on 02/12/2021 at 11:42 Approved by: Rivera Shabazz M.D. on 02/12/2021 at 11:45
[2021-02-12 11:19] LABS: BUN Creatinine Ratio 17.2 (6-22); Blood Urea Nitrogen 17 mg/dL (9-20); Calcium 8.9 mg/dL (8.4-10.2); Carbon Dioxide 28 mmol/L (22-32); Chloride 105 mmol/L (98-107); Estimated Glomerular Filt Rate > 60.0 mL/min (>60); Glucose 104 mg/dL (80-110); HEMOLYSIS < 15 (0-50); Potassium 4.2 mmol/L (3.4-5.1); Sodium 141 mmol/L (137-145)
== END ==
PROVIDERS: PCP Family Medicine; Referring Provider Urology; Visit Provider Urology
DX: Z01.812 Encounter for preprocedural laboratory examination (principal); N20.1 Calculus of ureter; M47.816 Spondylosis without myelopathy or radiculopathy, lumbar region; M47.818 Spondylosis without myelopathy or radiculopathy, sacral and sacrococcygeal region; I70.208 Unspecified atherosclerosis of native arteries of extremities, other extremity; R31.0 Gross hematuria; R01.1 Cardiac murmur, unspecified; R79.89 Other specified abnormal findings of blood chemistry; R31.29 Other microscopic hematuria; Z87.898 Personal history of other specified conditions; Z79.01 Long term (current) use of anticoagulants
CPT/HCPCS: 36415; 51798; 74018; 80048; 81002; 99215

== ENCOUNTER → 2021-03-18 10:30 | Outpatient (CLI) | payer MEDICARE, OTHER, SELFPAY | PROVIDERS: PCP Family Medicine; Visit Provider Urology | DX: N39.0 Urinary tract infection, site not specified (principal); R30.0 Dysuria | CPT/HCPCS: 81002; 87077; 87086; 87186 ==

== ENCOUNTER → 2021-07-09 10:52 | Outpatient (CLI) | payer MEDICARE, OTHER, SELFPAY ==
--- NOTE | 2021-07-09 10:54 | DI.RAD.S_ITS ---
PROCEDURE: XR KUB INDICATIONS: Renal calculus TECHNIQUE: One view of the abdomen acquired. COMPARISON: [facility], CR, XR KUB, 02/12/2021, 9:38. FINDINGS: Surgical changes and devices: None. Bowel: Bowel gas pattern is nonobstructive, moderate fecal stasis throughout the colon is seen. No gross pneumoperitoneum. Soft tissues: No suspicious abdominal calcifications. Visualized solid organ contours appear normal in size. Bones: No suspicious bony lesions. Degenerative disc disease throughout lumbar spine is seen unchanged from prior study. IMPRESSION: No gross renal calculi are seen. Moderate constipation. No gross free air. Dictated by: Luis Fernando Diane M.D. on 07/09/2021 at 11:47 Approved by: Luis Fernando Diane M.D. on 07/09/2021 at 11:47
[2021-07-09 12:39] LABS: BUN Creatinine Ratio 17.5 (6-22); Blood Urea Nitrogen 18 mg/dL (9-20); Calcium 8.9 mg/dL (8.4-10.2); Carbon Dioxide 30 mmol/L (22-32); Chloride 106 mmol/L (98-107); Estimated Glomerular Filt Rate > 60.0 mL/min (>60); Glucose 113 mg/dL (80-110); HEMOLYSIS < 15 (0-50); Potassium 4.3 mmol/L (3.4-5.1); Sodium 143 mmol/L (137-145)
== END ==
PROVIDERS: PCP Family Medicine; Referring Provider Urology; Visit Provider Urology
DX: N20.1 Calculus of ureter (principal); K59.00 Constipation, unspecified; R31.29 Other microscopic hematuria; R79.89 Other specified abnormal findings of blood chemistry
CPT/HCPCS: 36415; 51798; 52000; 74018; 80048; 81002

== ENCOUNTER → 2021-07-19 08:34 | Outpatient (CLI) | payer MEDICARE, OTHER, SELFPAY ==
[2021-07-19 09:29] LABS: Appearance Urine UA CLOUDY; Bilirubin Urine UA NEGATIVE (NEGATIVE); Color Urine UA YELLOW; Glucose Urine UA TRACE g/dL (Negative); Ketones Urine UA NEGATIVE (NEGATIVE); Leukocyte Esterase Urine UA 2+ (NEGATIVE); Nitrite Urine UA POSITIVE (Negative); Occult Blood Urine UA 3+ (Negative); Protein Urine UA 2+ (Negative)
[2021-07-19 09:43] LABS: Bacteria Urine Many (>30); Culture Indicated Urine Specimen Cultured; RBC Urine 5-10/HPF (0-5/HPF); WBC Urine >100/HPF (0-5/HPF)
== END ==
PROVIDERS: PCP Family Medicine; Referring Provider Urology; Visit Provider Urology
DX: R30.0 Dysuria (principal)
CPT/HCPCS: 81001; 87077; 87086; 87186

== ENCOUNTER → 2022-08-13 08:46 | Outpatient (CLI) | payer MEDICARE, OTHER, SELFPAY ==
--- NOTE | 2022-08-13 08:48 | DI.RAD.S_ITS ---
PROCEDURE: XR KUB INDICATIONS: History of kidney stones TECHNIQUE: One view of the abdomen acquired. COMPARISON: [facility], CR, XR KUB, 07/09/2021, 10:47. [facility], CR, XR KUB, 02/12/2021, 9:38. FINDINGS: No definite renal calculi identified radiographically. Nonobstructive bowel gas pattern. Vascular calcifications are present. Degenerative changes of the lumbar spine. IMPRESSION: No definite renal calculi identified radiographically. CT KUB could be obtained if clinically indicated. Dictated by: Aquilino Almonte M.D. on 08/13/2022 at 16:42 Approved by: Aquilino Almonte M.D. on 08/13/2022 at 16:51
[2022-08-13 10:51] LABS: Blood Urea Nitrogen 23 mg/dL (9-20); Carbon Dioxide 30 mmol/L (22-32); Chloride 101 mmol/L (98-107); Estimated Glomerular Filt Rate > 60 mL/min (>60); Glucose 102 mg/dL (80-110); HEMOLYSIS 21 (0-50); Potassium 4.1 mmol/L (3.4-5.1); Sodium 136 mmol/L (137-145)
[2022-08-13 11:06] LABS: Calcium 8.8 mg/dL (8.4-10.2)
== END ==
PROVIDERS: PCP Family Medicine; Referring Provider Urology; Visit Provider Urology
DX: R79.89 Other specified abnormal findings of blood chemistry (principal); Z87.442 Personal history of urinary calculi
CPT/HCPCS: 36415; 74018; 80048

== ENCOUNTER → 2022-11-20 09:54 | Outpatient (CLI) | payer MEDICARE, OTHER, SELFPAY ==
[2022-11-20 10:57] LABS: Lactate Dehydrogenase 210 U/L (120-246)
== END ==
PROVIDERS: PCP Family Medicine; Referring Provider Internal Medicine; Visit Provider Internal Medicine
DX: C91.10 Chronic lymphocytic leukemia of B-cell type not having achieved remission (principal)
CPT/HCPCS: 36415; 83615

== ENCOUNTER → 2023-02-05 11:57 | Outpatient (CLI) | payer MEDICARE, OTHER, SELFPAY ==
--- NOTE | 2023-02-05 12:03 | DI.RAD.S_ITS ---
PROCEDURE: XR KUB INDICATIONS: History of kidney stone rule out recurrence TECHNIQUE: One view of the abdomen acquired. COMPARISON: [facility], CR, XR KUB, 08/13/2022, 9:02. FINDINGS: Surgical changes and devices: None. Bowel: Bowel gas pattern is normal. Soft tissues: No suspicious abdominal calcifications. Visualized solid organ contours appear normal in size. Bones: No suspicious bony lesions. Degenerative disc disease throughout the lumbar spine. IMPRESSION: No radiographic evidence of renal calculi. Dictated by: Iris Newton M.D. on 02/05/2023 at 16:57 Approved by: Iris Newton M.D. on 02/05/2023 at 16:58
[2023-02-05 13:50] LABS: Hematocrit 40.9 % (41-53); Hemoglobin 13.5 g/dL (13.5-17.5); Mean Corpuscular HGB Conc 33.1 % (30-36); Mean Corpuscular Hemoglobin 31.7 PG (26-34); Mean Corpuscular Volume 95.7 fL (80-100); Platelet Count 169 X10^3/uL (150-400); Red Blood Cell Count 4.27 X10^6/uL (4.5-5.9); Red Cell Distribution Width 14.9 % (11.6-14.8)
[2023-02-05 14:00] LABS: Alanine Aminotransferase 19 IU/L (<50); Albumin 4.1 g/dL (3.5-5.0); Albumin Globulin Ratio 1.6 (1.0-2.8); Alkaline Phosphatase 51 U/L (38-126); Aspartate Aminotransferase 32 IU/L (17-59); BUN Creatinine Ratio 22.9 (6-22); Bilirubin Total 0.8 mg/dL (0.2-1.3); Blood Urea Nitrogen 22 mg/dL (9-20); Calcium 9.1 mg/dL (8.4-10.2); Carbon Dioxide 30 mmol/L (22-32); Chloride 103 mmol/L (98-107); Estimated Glomerular Filt Rate > 60 mL/min (>60); Globulin 2.5 g/dL (1.7-4.1); Glucose 114 mg/dL (80-110); HEMOLYSIS < 15 (0-50); Lactate Dehydrogenase 222 U/L (120-246); Potassium 4.3 mmol/L (3.4-5.1); Sodium 138 mmol/L (137-145); Total Protein 6.6 g/dL (6.3-8.2)
[2023-02-05 14:20] LABS: Add Manual Diff / Slide Review YES; White Blood Cell Count 39.4 X10^3/uL (4.5-11.0)
[2023-02-05 14:24] LABS: Neutrophils Absolute Manual 5516 /uL (3000-5900); Total Cells Counted 100
[2023-02-05 14:25] LABS: Anisocytosis 1+; Smudge Cells 2+
== END ==
PROVIDERS: PCP Family Medicine; Referring Provider Internal Medicine; Visit Provider Internal Medicine
DX: R79.89 Other specified abnormal findings of blood chemistry (principal); C91.10 Chronic lymphocytic leukemia of B-cell type not having achieved remission; Z87.442 Personal history of urinary calculi
CPT/HCPCS: 36415; 74018; 80053; 83615; 85007; 85025

== ENCOUNTER → 2023-03-15 17:13 | Outpatient (ROUT) | payer MEDICARE, OTHER, SELFPAY | PROVIDERS: PCP Family Medicine; Visit Provider Dermatology | DX: D48.5 Neoplasm of uncertain behavior of skin (principal) | CPT/HCPCS: 87070; 87077; 87186; 87205 ==

== ENCOUNTER → 2023-05-11 22:44 | Outpatient (ROUT) | payer MEDICARE, OTHER, SELFPAY | PROVIDERS: PCP Family Medicine; Visit Provider Dermatology | DX: D48.5 Neoplasm of uncertain behavior of skin (principal) | CPT/HCPCS: 87070; 87075; 87077; 87147; 87186; 87205 ==

== ENCOUNTER → 2023-08-10 09:30 | Outpatient (CLI) | payer MEDICARE, OTHER, SELFPAY ==
[2023-08-10 10:05] LABS: Hematocrit 41.3 % (41-53); Hemoglobin 13.4 g/dL (13.5-17.5); Mean Corpuscular HGB Conc 32.5 % (30-36); Mean Corpuscular Hemoglobin 31.1 PG (26-34); Mean Corpuscular Volume 95.5 fL (80-100); Platelet Count 156 X10^3/uL (150-400); Red Blood Cell Count 4.32 X10^6/uL (4.5-5.9); Red Cell Distribution Width 14.6 % (11.6-14.8)
[2023-08-10 10:08] LABS: Add Manual Diff / Slide Review YES; White Blood Cell Count 36.2 X10^3/uL (4.5-11.0)
[2023-08-10 10:19] LABS: Neutrophils Absolute Manual 2534 /uL (3000-5900); Smudge Cells 2+; Total Cells Counted 100
[2023-08-10 10:35] LABS: Alanine Aminotransferase 20 IU/L (<50); Albumin 4.2 g/dL (3.5-5.0); Albumin Globulin Ratio 1.8 (1.0-2.8); Alkaline Phosphatase 57 U/L (38-126); Aspartate Aminotransferase 33 IU/L (17-59); BUN Creatinine Ratio 29.7 (6-22); Bilirubin Total 0.7 mg/dL (0.2-1.3); Blood Urea Nitrogen 33 mg/dL (9-20); Calcium 9.1 mg/dL (8.4-10.2); Carbon Dioxide 28 mmol/L (22-32); Chloride 105 mmol/L (98-107); Estimated Glomerular Filt Rate > 60 mL/min (>60); Globulin 2.3 g/dL (1.7-4.1); Glucose 111 mg/dL (80-110); HEMOLYSIS < 15 (0-50); Lactate Dehydrogenase 208 U/L (120-246); Potassium 4.9 mmol/L (3.4-5.1); Sodium 137 mmol/L (137-145); Total Protein 6.5 g/dL (6.3-8.2)
== END ==
PROVIDERS: PCP Family Medicine; Referring Provider Internal Medicine; Visit Provider Internal Medicine
DX: C91.10 Chronic lymphocytic leukemia of B-cell type not having achieved remission (principal)
CPT/HCPCS: 36415; 80053; 83615; 85007; 85025

== ENCOUNTER → 2023-12-21 12:42 | Outpatient (ROUT) | payer MEDICARE, OTHER, SELFPAY | PROVIDERS: PCP Family Medicine; Visit Provider Dermatology | DX: T81.89XA Other complications of procedures, not elsewhere classified, initial encounter (principal) | CPT/HCPCS: 87070; 87075; 87077; 87147; 87205 ==

== ENCOUNTER → 2024-05-17 09:11 | Outpatient (CLI) | payer MEDICARE, OTHER, SELFPAY ==
[2024-05-17 09:55] LABS: Hematocrit 39.5 % (41-53); Hemoglobin 12.9 g/dL (13.5-17.5); Mean Corpuscular HGB Conc 32.8 % (30-36); Mean Corpuscular Hemoglobin 31.5 PG (26-34); Platelet Count 175 X10^3/uL (150-400); Red Blood Cell Count 4.11 X10^6/uL (4.5-5.9); Red Cell Distribution Width 14.8 % (11.6-14.8)
[2024-05-17 09:59] LABS: Add Manual Diff / Slide Review YES; White Blood Cell Count 38.8 X10^3/uL (4.5-11.0)
[2024-05-17 10:12] LABS: Alanine Aminotransferase 21 IU/L (<50); Albumin 4.2 g/dL (3.5-5.0); Albumin Globulin Ratio 1.9 (1.0-2.8); Alkaline Phosphatase 71 U/L (38-126); Aspartate Aminotransferase 35 IU/L (17-59); BUN Creatinine Ratio 25.5 (6-22); Bilirubin Total 0.8 mg/dL (0.2-1.3); Blood Urea Nitrogen 28 mg/dL (9-20); Calcium 9.1 mg/dL (8.4-10.2); Carbon Dioxide 28 mmol/L (22-32); Chloride 106 mmol/L (98-107); Estimated Glomerular Filt Rate > 60 mL/min (>60); Globulin 2.2 g/dL (1.7-4.1); Glucose 109 mg/dL (80-110); HEMOLYSIS < 15 (0-50); Lactate Dehydrogenase 258 U/L (120-246); Potassium 4.7 mmol/L (3.4-5.1); Sodium 139 mmol/L (137-145); Total Protein 6.4 g/dL (6.3-8.2)
[2024-05-17 10:17] LABS: Neutrophils Absolute Manual 5044 /uL (3000-5900); Total Cells Counted 100
[2024-05-17 10:18] LABS: RBC Morphology Normal Morphology; Smudge Cells 2+
== END ==
PROVIDERS: PCP Family Medicine; Referring Provider Internal Medicine; Visit Provider Internal Medicine
DX: C91.10 Chronic lymphocytic leukemia of B-cell type not having achieved remission (principal)
CPT/HCPCS: 36415; 80053; 83615; 85007; 85025

== ENCOUNTER → 2024-08-31 09:14 | Outpatient (CLI) | payer MEDICARE, OTHER, SELFPAY ==
--- NOTE | 2024-08-31 09:15 | DI.MRI.S_ITS ---
PROCEDURE: MR HEAD/BRAIN WO CON INDICATIONS: headaches TECHNIQUE: Non-contrast axial T1 spin echo, axial T2 fast spin echo, sagittal and axial FLAIR, coronal T2 fast spin echo, axial gradient echo, axial diffusion and ADC through the brain. COMPARISON: None. FINDINGS: Image quality: Excellent. CSF spaces: Ventricles appear symmetric in size and shape. Basal cisterns are patent. No extra-axial fluid collections. Brain: No intracranial bleeds or mass effects. 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 There is cerebral volume loss for age. There are periventricular and deep white matter chronic small vessel ischemic changes. Brainstem appears normal. Diffusion-weighted images show no acute infarct. No chronic ischemic insults. Normal intravascular flow voids are present. Skull and face: Calvarial bone marrow is normal in signal. Orbits are normal. Sinuses: Sinuses and mastoids are clear. IMPRESSION: 1. Volume loss and small vessel ischemic disease. 2. Moderate chronic right cerebral infarct. 3. No acute process. No recent infarct. Dictated by: Luis Aceves M.D. on 08/31/2024 at 11:00 Approved by: Luis Aceves M.D. on 08/31/2024 at 11:03
== END ==
PROVIDERS: PCP Family Medicine; Referring Provider Family Medicine; Visit Provider Family Medicine
DX: R51.9 Headache, unspecified (principal); Z86.73 Personal history of transient ischemic attack (TIA), and cerebral infarction without residual deficits
CPT/HCPCS: 70551